=== PATIENT | male | born 1950 | race African-American/Black ===

== ENCOUNTER 2022-08-08 17:18 | Observation (INO) ==
[2022-08-08] MEDS ORDERED: DUONEB NEB ONE (17:38)
[2022-08-08] MEDS ORDERED: TYLENOL PO ONE (17:38)
[2022-08-08] MEDS ORDERED: SODIUM CHLORIDE 1,000 ML IV STA (17:38)
[2022-08-08] MEDS ORDERED: SOLU-MEDROL 125 MG IVP ONE (17:38)
--- NOTE | 2022-08-08 17:38 | ED.PDOC ---
General <CHRIS LEVI MD - Last Filed: 08/08/22 18:36> ED Provider: Dr. CHRIS LEVI MD Chief Complaint: Respiratory Complaint Stated Complaint: mild to mod off and on congested cough for 5 days, hx smoking, no DM, +fever, +malaise, +pleuritic chest discomfort Time Seen by Provider: 08/08/22 17:25 Mode of Arrival: Ambulance Information Source: Patient Nursing and Triage Documentation Reviewed and Agree: Yes Does patient meet sepsis criteria?: No System Inflammatory Response Syndrome: Not Applicable Sepsis Protocol: For patient's 13 years and over: Temp is 96.8 and below OR 101 and greater Pulse >90 BPM Resp >20/minute Acutely Altered Mental Status Are patient's symptoms suggestive of a new infection, such as: -Pneumonia -Skin, Soft Tissue -Endocarditis -UTI -Bone, Joint Infection -Implantable Device -Acute Abdominal Infection -Wound Infection -Meningitis -Blood Stream Catheter Infection -Unknown Review of Systems <CHRIS LEVI MD - Last Filed: 08/08/22 18:36> Review Of Systems Constitutional: Reports Fever, Malaise and Weakness Eyes: Denies Vision change Ears, Nose, Mouth, Throat: Denies Nose discharge or Throat pain Respiratory: Reports Cough, Short of air and Wheezing Cardiac: Reports Chest pain GI: Denies Abdominal pain or Vomiting : Denies Frequency Musculoskeletal: Denies Neck pain Skin: Denies Rash or Cyanosis Neurological: Denies Cognitive dysfunction or Headache All Other Systems: Other PFSH <CHRIS LEVI MD - Last Filed: 08/08/22 18:36> Medical History (Updated 08/09/22 @ 00:45 by BRANDON BLANDON MD) HTN (hypertension) Liver disease Family History (Updated 08/09/22 @ 00:04 by ANTONIO HICKMAN RN) FATHER Gastric cancer Mother Coronary artery thrombosis Social History (Updated 08/08/22 @ 23:24 by ANTONIO HICKMAN RN) Smoking and tobacco status: Current some day smoker Tobacco type: cigarettes Second hand smoke exposure: Yes Surgical History (Updated 08/08/22 @ 23:24 by ANTONIO HICKMAN RN) History of cholecystectomy Hx of tonsillectomy Pacemaker Physical Exam <CHRIS LEVI MD - Last Filed: 08/08/22 18:36> Physical Exam Appearance: Reports Ill-appearing Ill-appearing: Mild Pain Distress: Mild Eyes: Reports Conjunctiva clear ENT: Reports Oropharynx normal Neck: Supple Respiratory: Reports Airway patent, Rhonchi and Wheezes Cardiovascular: Reports RRR GI/: Reports Soft and Nontender Musculoskeletal: Reports ROM intact Skin: Reports Warm and Dry Neurological: Reports Alert and Oriented Psychiatric: Reports Affect appropriate Interpretation <CHRIS LEVI MD - Last Filed: 08/08/22 18:36> EKG Interpretation Time of EKG #1: 18:22 Rate: Normal Rhythm: Sinus Interpretation: no stemi <BRANDON BLANDON MD - Last Filed: 08/09/22 00:45> Critical Care Note Total Critical Care Time (mins): 30 Comments: IV fluids Iv antibiotics Course <CHRIS LEVI MD - Last Filed: 08/08/22 18:36> Course Hematology/Chemistry: 08/08/22 18:16 08/08/22 18:16 Orders, Labs, Meds: Lab Review 08/08/22 08/08/22 08/08/22 17:45 18:16 18:16 WBC 13.48 H RBC 4.11 L Hgb 12.9 L Hct 37.3 L MCV 90.8 MCH 31.4 H MCHC 34.6 RDW Coeff of [place] 13.1 Plt Count 62 L Immature Gran % (Auto) 0.2 Neut % (Auto) 62.1 Lymph % (Auto) 26.0 [place] % (Auto) 11.6 H Eos % (Auto) 0.0 Baso % (Auto) 0.1 Neut # (Auto) 8.4 H Lymph # (Auto) 3.5 H [place] # (Auto) 1.6 Eos # (Auto) 0.0 Baso # (Auto) 0.0 Immature Gran # (Auto) 0.0 Puncture Site Base Excess O2 Saturation ABG pH ABG pCO2 ABG pO2 ABG HCO3 ABG Total CO2 Piotr Test Hemoglobin Oxyhemoglobin Carboxyhemoglobin Total Hemoglobin Sodium 137.5 Potassium 3.25 L Chloride 105.6 Carbon Dioxide 17.4 L Anion Gap 17.75 BUN 31.7 H Creatinine 1.45 H Estimated GFR (MDRD) 58.00 BUN/Creatinine Ratio 21.86 Glucose 75.0 Lactic Acid Calcium 7.26 L Total Bilirubin 0.91 AST 73.9 H ALT 41.0 Alkaline Phosphatase 83.5 Troponin I 0.013 Total Protein 7.79 Albumin 3.73 Globulin 4.06 Albumin/Globulin Ratio 0.91 Procalcitonin Influ A Molecular Assay Influ B Molecular Assay SARS CoV-2 RNA Rapid LAYLA Negative 08/08/22 08/08/22 08/08/22 18:16 18:18 19:35 WBC RBC Hgb Hct MCV MCH MCHC RDW Coeff of [place] Plt Count Immature Gran % (Auto) Neut % (Auto) Lymph % (Auto) [place] % (Auto) Eos % (Auto) Baso % (Auto) Neut # (Auto) Lymph # (Auto) [place] # (Auto) Eos # (Auto) Baso # (Auto) Immature Gran # (Auto) Puncture Site Base Excess O2 Saturation ABG pH ABG pCO2 ABG pO2 ABG HCO3 ABG Total CO2 Piotr Test Hemoglobin Oxyhemoglobin Carboxyhemoglobin Total Hemoglobin Sodium Potassium Chloride Carbon Dioxide Anion Gap BUN Creatinine Estimated GFR (MDRD) BUN/Creatinine Ratio Glucose Lactic Acid 2.59 H Calcium Total Bilirubin AST ALT Alkaline Phosphatase Troponin I Total Protein Albumin Globulin Albumin/Globulin Ratio Procalcitonin 1.30 H Influ A Molecular Assay Negative by naat Influ B Molecular Assay Positive by naat H SARS CoV-2 RNA Rapid LAYLA 08/08/22 21:15 WBC RBC Hgb Hct MCV MCH MCHC RDW Coeff of [place] Plt Count Immature Gran % (Auto) Neut % (Auto) Lymph % (Auto) [place] % (Auto) Eos % (Auto) Baso % (Auto) Neut # (Auto) Lymph # (Auto) [place] # (Auto) Eos # (Auto) Baso # (Auto) Immature Gran # (Auto) Puncture Site Rrad Base Excess -8.1 L O2 Saturation 95.3 ABG pH 7.39 ABG pCO2 28.0 L ABG pO2 78.0 L ABG HCO3 16.9 L ABG Total CO2 17.8 L Piotr Test Pos Hemoglobin 1.4 Oxyhemoglobin 92.8 L Carboxyhemoglobin 1.8 H Total Hemoglobin 12.7 Sodium Potassium Chloride Carbon Dioxide Anion Gap BUN Creatinine Estimated GFR (MDRD) BUN/Creatinine Ratio Glucose Lactic Acid Calcium Total Bilirubin AST ALT Alkaline Phosphatase Troponin I Total Protein Albumin Globulin Albumin/Globulin Ratio Procalcitonin Influ A Molecular Assay Influ B Molecular Assay SARS CoV-2 RNA Rapid LAYLA Orders Category Date Time Status ADMIT OBSERVATION [PLACE PATIENT OBSERVATION] .TO ADMISSION 08/08/22 21:42 Active MEDSURG (MONITORED BED) ABG DRAW REQUEST Stat CARDIO 08/08/22 19:58 Ordered EKG-(ED ONLY) Stat CARDIO 08/08/22 17:38 Completed NEBULIZER TREATMENT Stat CARDIO 08/08/22 19:58 Completed NEBULIZER TREATMENT Stat CARDIO 08/08/22 21:43 Ordered ACTIVITY .Up With Assistance CARE 08/08/22 21:42 Active INTAKE & OUTPUT Q8HR CARE 08/08/22 21:43 Active TELEMETRY MONITORING TELE CARE 08/08/22 21:42 Active VITAL SIGNS Q4HR CARE 08/08/22 21:43 Active REGULAR DIET DIETARY 08/08/22 Breakfast Ordered ABG COOX Stat LAB 08/08/22 21:15 Completed BLOOD CULTURE Stat LAB 08/08/22 18:16 Ordered CBC W/ AUTO DIFF DAILY@0600 LAB 08/09/22 06:00 Ordered CBC W/ AUTO DIFF DAILY@0600 LAB 08/10/22 06:00 Ordered CBC W/ AUTO DIFF Stat LAB 08/08/22 18:16 Completed CMP [COMPREHENSIVE METABOLIC PANEL] Stat LAB 08/08/22 18:16 Completed COMPREHENSIVE METABOLIC PANEL DAILY@0600 LAB 08/09/22 06:00 Ordered COMPREHENSIVE METABOLIC PANEL DAILY@0600 LAB 08/10/22 06:00 Ordered CREATINE KINASE Q8H LAB 08/09/22 03:45 Ordered CREATINE KINASE Q8H LAB 08/09/22 11:45 Ordered FLU A & B MOLECULAR [FLU A/B MOLECULAR] Stat LAB 08/08/22 19:35 Completed LACTIC ACID Stat LAB 08/08/22 18:16 Completed MOLECULAR GROUP A STREP Stat LAB 08/08/22 17:45 Completed PROCALCITONIN Stat LAB 08/08/22 18:18 Completed SARS COV-2 RNA RAPID LAYLA Stat LAB 08/08/22 17:45 Completed TROPONIN I Q8H LAB 08/09/22 03:45 Ordered TROPONIN I Q8H LAB 08/09/22 11:45 Ordered TROPONIN I Stat LAB 08/08/22 18:16 Completed Acetaminophen [Tylenol] MEDS 08/08/22 17:38 Discontinued 650 mg PO ONCE ONE Acetaminophen [Tylenol] MEDS 08/08/22 21:42 Active 650 mg PO Q4H PRN Azithromycin Inj [Zithromax] 500 mg MEDS 08/08/22 19:59 Discontinued 0.9 % Sodium Chloride [Sodium Chloride] 250 ml IV ONCE Azithromycin [Zithromax] MEDS 08/10/22 21:00 Active 250 mg PO BEDTIME Ceftriaxone/D5w 1 gm Premix [Rocephin 1 gm/50 ml D5w] MEDS 08/09/22 21:00 Active 1 gm in 50 ml IV BEDTIME Ceftriaxone/D5w 1 gm Premix [Rocephin 1 gm/50 ml D5w] MEDS 08/08/22 19:59 Discontinued 1 gm in 50 ml IV ONCE Enoxaparin Sodium [Lovenox] MEDS 08/09/22 09:00 Active 30 mg SUBCUT DAILY Ipratropium/Albuterol Neb [Duoneb] MEDS 08/08/22 17:38 Discontinued 3 ml NEB ONCE ONE Ipratropium/Albuterol Neb [Duoneb] MEDS 08/08/22 19:58 Discontinued 3 ml NEB ONCE STA Ipratropium/Albuterol Neb [Duoneb] MEDS 08/08/22 21:42 Discontinued 3 ml NEB ONCE STA Methylprednisolone Sod Succ/Pf [Solu-Medrol 125 mg] MEDS 08/08/22 17:38 Discontinued 125 mg IVP ONCE ONE Morphine Sulfate [Morphine 2 mg/ml Syringe] MEDS 08/08/22 21:42 Active 2 mg IVP Q4H PRN Ondansetron HCl/Pf [Zofran 4 mg/2 ml] MEDS 08/08/22 21:42 Active 4 mg IVP Q6H PRN Oseltamivir Phosphate Cap [Tamiflu Capsule] MEDS 08/08/22 22:00 Discontinued 30 mg PO Q48H Oseltamivir Phosphate Capsule [Tamiflu Capsule] MEDS 08/08/22 21:39 Discontinued 75 mg PO ONCE ONE Sodium Chloride 0.9% [Sodium Chloride] 1,000 ml MEDS 08/08/22 22:00 Active IV 150 mls/hr Sodium Chloride 0.9% [Sodium Chloride] 1,000 ml MEDS 08/08/22 17:38 Discontinued IV BOLUS RESUSCITATION STATUS Routine OTHERS 08/08/22 21:42 Ordered CHEST, 1V AP ONLY Stat RADS 08/08/22 17:38 Completed Medications Generic Name Dose Route Start Last Admin Trade Name Freq PRN Reason Stop Dose Admin Acetaminophen 650 mg 08/08/22 21:42 Acetaminophen 325 Mg Tablet PO Q4H PRN Fever and Mild Pain Azithromycin 250 mg 08/10/22 21:00 Azithromycin 250 Mg Tablet PO 08/13/22 21:01 BEDTIME LAN Enoxaparin Sodium 30 mg 08/09/22 09:00 Enoxaparin Sodium 30 Mg/0.3 Ml Syr SUBCUT DAILY LAN Sodium Chloride 1,000 mls @ 150 mls/hr 08/08/22 22:00 08/08/22 23:57 Sodium Chloride IV 150 mls/hr .Q6H40M LAN Administration CEFTRIAXONE/D5W 1 GM PREMIX 1 gm in 50 mls @ 75 mls/hr 08/09/22 21:00 Rocephin 1 Gm/50 Ml D5w IV 08/12/22 20:59 BEDTIME LAN Morphine Sulfate 2 mg 08/08/22 21:42 Morphine Sulfate 2 Mg/Ml Syringe IVP Q4H PRN severe pain Ondansetron HCl 4 mg 08/08/22 21:42 Ondansetron Hcl/Pf 4 Mg/2 Ml Sdv IVP Q6H PRN Nausea / Vomiting Oseltamivir Phosphate 30 mg 08/09/22 09:00 Oseltamivir Phosphate 30 Mg Capsule PO BID LAN Discontinued Medications Generic Name Dose Route Start Last Admin Trade Name Freq PRN Reason Stop Dose Admin Acetaminophen 650 mg 08/08/22 17:38 08/08/22 17:49 Acetaminophen 325 Mg Tablet PO 08/08/22 17:39 650 mg ONCE ONE Administration Albuterol/Ipratropium 3 ml 08/08/22 17:38 08/08/22 18:00 Ipratropium/Albuterol Vial.[place] [facility] 08/08/22 17:39 3 ml ONCE ONE Administration Albuterol/Ipratropium 3 ml 08/08/22 19:58 08/08/22 21:15 Ipratropium/Albuterol Vial.[facility] 08/08/22 19:59 3 ml ONCE STA Administration Albuterol/Ipratropium 3 ml 08/08/22 21:42 Ipratropium/Albuterol Vial.[facility] 08/08/22 21:43 ONCE STA Sodium Chloride 1,000 mls @ 1,000 mls/hr 08/08/22 17:38 08/08/22 17:48 Sodium Chloride IV 08/08/22 18:37 1,000 mls/hr BOLUS STA Administration CEFTRIAXONE/D5W 1 GM PREMIX 1 gm in 50 mls @ 75 mls/hr 08/08/22 19:59 07/02 20:47 Rocephin 1 Gm/50 Ml D5w IV 08/08/22 20:38 75 mls/hr ONCE STA Administration Azithromycin 500 mg/ Sodium 250 mls @ 125 mls/hr 08/08/22 19:59 08/08/22 23:57 Chloride IV 08/08/22 21:58 125 mls/hr ONCE ONE Administration Methylprednisolone Sodium Succinate 125 mg 08/08/22 17:38 08/08/22 17:49 Methylprednisolone Sod Succ/Pf 125 Mg/2 Ml Vial IVP 08/08/22 17:39 125 mg ONCE ONE Administration Oseltamivir Phosphate 75 mg 08/08/22 21:39 08/08/22 21:51 Oseltamivir Phosphate 75 Mg Capsule PO 08/08/22 21:40 75 mg ONCE ONE Administration Oseltamivir Phosphate 30 mg 08/08/22 22:00 Oseltamivir Phosphate 30 Mg Capsule PO Q48H LAN Vital Signs: Temp Pulse Resp BP Pulse Ox 08/08/22 17:20 101.5 F H 83 20 103/65 99 <BRANDON BLANDON MD - Last Filed: 08/09/22 00:45> Course Orders, Labs, Meds: Lab Review 08/08/22 08/08/22 08/08/22 17:45 18:16 18:16 WBC 13.48 H RBC 4.11 L Hgb 12.9 L Hct 37.3 L MCV 90.8 MCH 31.4 H MCHC 34.6 RDW Coeff of [place] 13.1 Plt Count 62 L Immature Gran % (Auto) 0.2 Neut % (Auto) 62.1 Lymph % (Auto) 26.0 [place] % (Auto) 11.6 H Eos % (Auto) 0.0 Baso % (Auto) 0.1 Neut # (Auto) 8.4 H Lymph # (Auto) 3.5 H [place] # (Auto) 1.6 Eos # (Auto) 0.0 Baso # (Auto) 0.0 Immature Gran # (Auto) 0.0 Puncture Site Base Excess O2 Saturation ABG pH ABG pCO2 ABG pO2 ABG HCO3 ABG Total CO2 Piotr Test Hemoglobin Oxyhemoglobin Carboxyhemoglobin Total Hemoglobin Sodium 137.5 Potassium 3.25 L Chloride 105.6 Carbon Dioxide 17.4 L Anion Gap 17.75 BUN 31.7 H Creatinine 1.45 H Estimated GFR (MDRD) 58.00 BUN/Creatinine Ratio 21.86 Glucose 75.0 Lactic Acid Calcium 7.26 L Total Bilirubin 0.91 AST 73.9 H ALT 41.0 Alkaline Phosphatase 83.5 Troponin I 0.013 Total Protein 7.79 Albumin 3.73 Globulin 4.06 Albumin/Globulin Ratio 0.91 Procalcitonin Influ A Molecular Assay Influ B Molecular Assay SARS CoV-2 RNA Rapid LAYLA Negative 08/08/22 08/08/22 08/08/22 18:16 18:18 19:35 WBC RBC Hgb Hct MCV MCH MCHC RDW Coeff of [place] Plt Count Immature Gran % (Auto) Neut % (Auto) Lymph % (Auto) [place] % (Auto) Eos % (Auto) Baso % (Auto) Neut # (Auto) Lymph # (Auto) [place] # (Auto) Eos # (Auto) Baso # (Auto) Immature Gran # (Auto) Puncture Site Base Excess O2 Saturation ABG pH ABG pCO2 ABG pO2 ABG HCO3 ABG Total CO2 Piotr Test Hemoglobin Oxyhemoglobin Carboxyhemoglobin Total Hemoglobin Sodium Potassium Chloride Carbon Dioxide Anion Gap BUN Creatinine Estimated GFR (MDRD) BUN/Creatinine Ratio Glucose Lactic Acid 2.59 H Calcium Total Bilirubin AST ALT Alkaline Phosphatase Troponin I Total Protein Albumin Globulin Albumin/Globulin Ratio Procalcitonin 1.30 H Influ A Molecular Assay Negative by naat Influ B Molecular Assay Positive by naat H SARS CoV-2 RNA Rapid LAYLA 08/08/22 21:15 WBC RBC Hgb Hct MCV MCH MCHC RDW Coeff of [place] Plt Count Immature Gran % (Auto) Neut % (Auto) Lymph % (Auto) [place] % (Auto) Eos % (Auto) Baso % (Auto) Neut # (Auto) Lymph # (Auto) [place] # (Auto) Eos # (Auto) Baso # (Auto) Immature Gran # (Auto) Puncture Site Rrad Base Excess -8.1 L O2 Saturation 95.3 ABG pH 7.39 ABG pCO2 28.0 L ABG pO2 78.0 L ABG HCO3 16.9 L ABG Total CO2 17.8 L Piotr Test Pos Hemoglobin 1.4 Oxyhemoglobin 92.8 L Carboxyhemoglobin 1.8 H Total Hemoglobin 12.7 Sodium Potassium Chloride Carbon Dioxide Anion Gap BUN Creatinine Estimated GFR (MDRD) BUN/Creatinine Ratio Glucose Lactic Acid Calcium Total Bilirubin AST ALT Alkaline Phosphatase Troponin I Total Protein Albumin Globulin Albumin/Globulin Ratio Procalcitonin Influ A Molecular Assay Influ B Molecular Assay SARS CoV-2 RNA Rapid LAYLA Orders Category Date Time Status ADMIT OBSERVATION [PLACE PATIENT OBSERVATION] .TO ADMISSION 08/08/22 21:42 Active MEDSURG (MONITORED BED) ABG DRAW REQUEST Stat CARDIO 08/08/22 19:58 Ordered EKG-(ED ONLY) Stat CARDIO 08/08/22 17:38 Completed NEBULIZER TREATMENT Stat CARDIO 08/08/22 19:58 Completed NEBULIZER TREATMENT Stat CARDIO 08/08/22 21:43 Ordered ACTIVITY .Up With Assistance CARE 08/08/22 21:42 Active INTAKE & OUTPUT Q8HR CARE 08/08/22 21:43 Active TELEMETRY MONITORING TELE CARE 08/08/22 21:42 Active VITAL SIGNS Q4HR CARE 08/08/22 21:43 Active REGULAR DIET DIETARY 08/08/22 Breakfast Ordered ABG COOX Stat LAB 08/08/22 21:15 Completed BLOOD CULTURE Stat LAB 08/08/22 18:16 Ordered CBC W/ AUTO DIFF DAILY@0600 LAB 08/09/22 06:00 Ordered CBC W/ AUTO DIFF DAILY@0600 LAB 08/10/22 06:00 Ordered CBC W/ AUTO DIFF Stat LAB 08/08/22 18:16 Completed CMP [COMPREHENSIVE METABOLIC PANEL] Stat LAB 08/08/22 18:16 Completed COMPREHENSIVE METABOLIC PANEL DAILY@0600 LAB 08/09/22 06:00 Ordered COMPREHENSIVE METABOLIC PANEL DAILY@0600 LAB 08/10/22 06:00 Ordered CREATINE KINASE Q8H LAB 08/09/22 03:45 Ordered CREATINE KINASE Q8H LAB 08/09/22 11:45 Ordered FLU A & B MOLECULAR [FLU A/B MOLECULAR] Stat LAB 08/08/22 19:35 Completed LACTIC ACID Stat LAB 08/08/22 18:16 Completed MOLECULAR GROUP A STREP Stat LAB 08/08/22 17:45 Completed PROCALCITONIN Stat LAB 08/08/22 18:18 Completed SARS COV-2 RNA RAPID LAYLA Stat LAB 08/08/22 17:45 Completed TROPONIN I Q8H LAB 08/09/22 03:45 Ordered TROPONIN I Q8H LAB 08/09/22 11:45 Ordered TROPONIN I Stat LAB 08/08/22 18:16 Completed Acetaminophen [Tylenol] MEDS 08/08/22 17:38 Discontinued 650 mg PO ONCE ONE Acetaminophen [Tylenol] MEDS 08/08/22 21:42 Active 650 mg PO Q4H PRN Azithromycin Inj [Zithromax] 500 mg MEDS 08/08/22 19:59 Discontinued 0.9 % Sodium Chloride [Sodium Chloride] 250 ml IV ONCE Azithromycin [Zithromax] MEDS 08/10/22 21:00 Active 250 mg PO BEDTIME Ceftriaxone/D5w 1 gm Premix [Rocephin 1 gm/50 ml D5w] MEDS 08/09/22 21:00 Active 1 gm in 50 ml IV BEDTIME Ceftriaxone/D5w 1 gm Premix [Rocephin 1 gm/50 ml D5w] MEDS 08/08/22 19:59 Discontinued 1 gm in 50 ml IV ONCE Enoxaparin Sodium [Lovenox] MEDS 08/09/22 09:00 Active 30 mg SUBCUT DAILY Ipratropium/Albuterol Neb [Duoneb] MEDS 08/08/22 17:38 Discontinued 3 ml NEB ONCE ONE Ipratropium/Albuterol Neb [Duoneb] MEDS 08/08/22 19:58 Discontinued 3 ml NEB ONCE STA Ipratropium/Albuterol Neb [Duoneb] MEDS 08/08/22 21:42 Discontinued 3 ml NEB ONCE STA Methylprednisolone Sod Succ/Pf [Solu-Medrol 125 mg] MEDS 08/08/22 17:38 Discontinued 125 mg IVP ONCE ONE Morphine Sulfate [Morphine 2 mg/ml Syringe] MEDS 08/08/22 21:42 Active 2 mg IVP Q4H PRN Ondansetron HCl/Pf [Zofran 4 mg/2 ml] MEDS 08/08/22 21:42 Active 4 mg IVP Q6H PRN Oseltamivir Phosphate Cap [Tamiflu Capsule] MEDS 08/08/22 22:00 Discontinued 30 mg PO Q48H Oseltamivir Phosphate Capsule [Tamiflu Capsule] MEDS 08/08/22 21:39 Discontinued 75 mg PO ONCE ONE Sodium Chloride 0.9% [Sodium Chloride] 1,000 ml MEDS 08/08/22 22:00 Active IV 150 mls/hr Sodium Chloride 0.9% [Sodium Chloride] 1,000 ml MEDS 08/08/22 17:38 Discontinued IV BOLUS RESUSCITATION STATUS Routine OTHERS 08/08/22 21:42 Ordered CHEST, 1V AP ONLY Stat RADS 08/08/22 17:38 Completed Medications Generic Name Dose Route Start Last Admin Trade Name [place]iliam PRN Reason Stop Dose Admin Acetaminophen 650 mg 08/08/22 21:42 Acetaminophen 325 Mg Tablet PO Q4H PRN Fever and Mild Pain Azithromycin 250 mg 08/10/22 21:00 Azithromycin 250 Mg Tablet PO 08/13/22 21:01 BEDTIME LAN Enoxaparin Sodium 30 mg 08/09/22 09:00 Enoxaparin Sodium 30 Mg/0.3 Ml Syr SUBCUT DAILY LAN Sodium Chloride 1,000 mls @ 150 mls/hr 08/08/22 22:00 08/08/22 23:57 Sodium Chloride IV 150 mls/hr .Q6H40M LAN Administration CEFTRIAXONE/D5W 1 GM PREMIX 1 gm in 50 mls @ 75 mls/hr 08/09/22 21:00 Rocephin 1 Gm/50 Ml D5w IV 08/12/22 20:59 BEDTIME LAN Morphine Sulfate 2 mg 08/08/22 21:42 Morphine Sulfate 2 Mg/Ml Syringe IVP Q4H PRN severe pain Ondansetron HCl 4 mg 08/08/22 21:42 Ondansetron Hcl/Pf 4 Mg/2 Ml Sdv IVP Q6H PRN Nausea / Vomiting Oseltamivir Phosphate 30 mg 08/09/22 09:00 Oseltamivir Phosphate 30 Mg Capsule PO BID LAN Discontinued Medications Generic Name Dose Route Start Last Admin Trade Name Wiliam PRN Reason Stop Dose Admin Acetaminophen 650 mg 08/08/22 17:38 08/08/22 17:49 Acetaminophen 325 Mg Tablet PO 08/08/22 17:39 650 mg ONCE ONE Administration Albuterol/Ipratropium 3 ml 08/08/22 17:38 08/08/22 18:00 Ipratropium/Albuterol Vial.[place] VENCES 08/08/22 17:39 3 ml ONCE ONE Administration Albuterol/Ipratropium 3 ml 08/08/22 19:58 08/08/22 21:15 Ipratropium/Albuterol Vial.[place] VENCES 08/08/22 19:59 3 ml ONCE STA Administration Albuterol/Ipratropium 3 ml 08/08/22 21:42 Ipratropium/Albuterol Vial.Neb NEB 08/08/22 21:43 ONCE STA Sodium Chloride 1,000 mls @ 1,000 mls/hr 08/08/22 17:38 08/08/22 17:48 Sodium Chloride IV 08/08/22 18:37 1,000 mls/hr BOLUS STA Administration CEFTRIAXONE/D5W 1 GM PREMIX 1 gm in 50 mls @ 75 mls/hr 08/08/22 19:59 08/08/22 20:47 Rocephin 1 Gm/50 Ml D5w IV 08/08/22 20:38 75 mls/hr ONCE STA Administration Azithromycin 500 mg/ Sodium 250 mls @ 125 mls/hr 08/08/22 19:59 08/08/22 2 3:57 Chloride IV 08/08/22 21:58 125 mls/hr ONCE ONE Administration Methylprednisolone Sodium Succinate 125 mg 08/08/22 17:38 08/08/22 17:49 Methylprednisolone Sod Succ/Pf 125 Mg/2 Ml Vial IVP 08/08/22 17:39 125 mg ONCE ONE Administration Oseltamivir Phosphate 75 mg 08/08/22 21:39 08/08/22 21:51 Oseltamivir Phosphate 75 Mg Capsule PO 08/08/22 21:40 75 mg ONCE ONE Administration Oseltamivir Phosphate 30 mg 08/08/22 22:00 Oseltamivir Phosphate 30 Mg Capsule PO Q48H LAN Vital Signs: Temp Pulse Resp BP Pulse Ox 08/08/22 17:20 101.5 F H 83 20 103/65 99 Discharge Plan Discharge Patient Disposition: PLACED OBSERVATION Discharge Problem: Influenza B, Sepsis, Chest pain ED Provider: CHRIS LEVI Condition: Fair <CHRIS LEVI MD - Last Filed: 08/08/22 18:36> Physician Progress Note: care to midnight doctor at 19:00 []
--- NOTE | 2022-08-08 18:22 | DI ---
EXAMINATION: AP CHEST RADIOGRAPH. HISTORY: Fever COMPARISON: None available. FINDINGS: No focal consolidation, pleural effusion or pneumothorax is identified. Left basilar calcified granu laurie noted. The cardiomediastinal silhouette is within normal limits. A right chest wall pacing device is noted. IMPRESSION: No acute cardiopulmonary findings.
[2022-08-08 18:23] LABS: BASOPHILS % (AUTO) 0.1 % (0.0-3.0); HEMATOCRIT 37.3 % (42.0-52.0); HEMOGLOBIN 12.9 g/dl (14.0-18.0); IMMATURE GRANULOCYTE % (AUTO) 0.2 % (0.0-5.0); LYMPHOCYTES # (AUTO) 3.5 K/uL (0.60-3.4); MEAN CORPUSCULAR HEMOGLOBIN 31.4 pg (27.0-31.0); MEAN CORPUSCULAR HGB CONC 34.6 (31.8-35.4); MEAN CORPUSCULAR VOLUME 90.8 fl (80.0-94.0); MONOCYTES # (AUTO) 1.6 K/uL (0.4-2.0); MONOCYTES % (AUTO) 11.6 (0-10); NEUTROPHILS # (AUTO) 8.4 K/ul (2.0-6.9); NEUTROPHILS % (AUTO) 62.1 % (42.2-75.2); PLATELET COUNT 62 10^3/uL (140-440); RDW COEFFICIENT OF VARIATION 13.1 % (11.6-14.8); RED BLOOD COUNT 4.11 10^6/ul (4.70-6.10); WHITE BLOOD COUNT 13.48 K/ul (4.2-10.2)
[2022-08-08 18:35] LABS: ALBUMIN 3.73 g/dL (3.5-5.0); ALKALINE PHOSPHATASE 83.5 U/L (56-119); ASPARTATE AMINO TRANSFERASE 73.9 U/L (17-59); BILIRUBIN,TOTAL 0.91 mg/dL (0.2-1.3); BLOOD UREA NITROGEN 31.7 mg/dL (9-20); CALCIUM 7.26 mg/dL (8.4-10.2); CARBON DIOXIDE 17.4 mmol/L (22-30.0); CHLORIDE 105.6 mmol/L (98-107); CREATININE 1.45 mg/dL (0.60-1.10); POTASSIUM 3.25 mmol/L (3.5-5.1); SODIUM 137.5 mmol/L (134.5-145); TOTAL PROTEIN 7.79 g/dL (6.3-8.2)
[2022-08-08 18:47] LABS: TROPONIN I 0.013 ng/ml (0.0000-0.120)
[2022-08-08 19:01] LABS: SARS COV-2 RNA RAPID NAAT NEGATIVE (NEGATIVE)
[2022-08-08 19:55] LABS: MOLECULAR FLU A NEGATIVE BY NAAT (NEGATIVE); MOLECULAR FLU B POSITIVE BY NAAT (NEGATIVE)
[2022-08-08] MEDS ORDERED: DUONEB NEB STA ×2 (19:58→21:42)
[2022-08-08] MEDS ORDERED: ROCEPHIN 1 GM/50 ML D5W 1 GM/50 ML BAG IV STA (19:59)
[2022-08-08] MEDS ORDERED: ZITHROMAX 500 MG in SODIUM CHLORIDE 250 ML IV ONE (19:59)
[2022-08-08] MEDS ORDERED: TAMIFLU CAPSULE PO ONE (21:39)
[2022-08-08] MEDS ORDERED: MORPHINE 2 MG/ML SYRINGE IVP PRN (21:42)
[2022-08-08 21:52] LABS: ABG O2 HGB 92.8 % (95-100); ABG PH 7.39 (7.35-7.45); BEecf -8.1 (-2.0-3.0); COHb 1.8 (0.5-1.5); HCO3 16.9 (21-28); MetHb 1.4 (0-1.5); TCO2 17.8 (19-24); sO2 95.3 % (94-98); tHb 12.7 g/dl (11.7-17.4)
[2022-08-08] MEDS ORDERED: TAMIFLU CAPSULE PO SCH (22:00)
[2022-08-08 23:33] VITALS: BMI 15.2
[2022-08-08] MEDS: SODIUM CHLORIDE 1,000 ML IV SCH (23:57)
[2022-08-09 03:52] LABS: BASOPHILS % (AUTO) 0.2 % (0.0-3.0); HEMATOCRIT 37.7 % (42.0-52.0); HEMOGLOBIN 12.9 g/dl (14.0-18.0); IMMATURE GRANULOCYTE % (AUTO) 0.3 % (0.0-5.0); LYMPHOCYTES # (AUTO) 0.7 K/uL (0.60-3.4); LYMPHOCYTES % (AUTO) 7.1 (10.0-50.0); MEAN CORPUSCULAR HEMOGLOBIN 31.5 pg (27.0-31.0); MEAN CORPUSCULAR HGB CONC 34.2 (31.8-35.4); MONOCYTES # (AUTO) 0.1 K/uL (0.4-2.0); MONOCYTES % (AUTO) 1.3 (0-10); NEUTROPHILS # (AUTO) 8.7 K/ul (2.0-6.9); NEUTROPHILS % (AUTO) 91.1 % (42.2-75.2); PLATELET COUNT 67 10^3/uL (140-440); RDW COEFFICIENT OF VARIATION 13.3 % (11.6-14.8); WHITE BLOOD COUNT 9.54 K/ul (4.2-10.2)
[2022-08-09 04:02] LABS: ALBUMIN 3.77 g/dL (3.5-5.0); ALKALINE PHOSPHATASE 76.2 U/L (56-119); BILIRUBIN,TOTAL 0.54 mg/dL (0.2-1.3); BLOOD UREA NITROGEN 33.7 mg/dL (9-20); CALCIUM 7.35 mg/dL (8.4-10.2); CARBON DIOXIDE 23.6 mmol/L (22-30.0); CHLORIDE 106.8 mmol/L (98-107); CREATINE KINASE 176.1 U/L (55-170); CREATININE 1.31 mg/dL (0.60-1.10); GLUCOSE 181.8 mg/dL (74-106); SODIUM 142.1 mmol/L (134.5-145); TOTAL PROTEIN 8.02 g/dL (6.3-8.2)
[2022-08-09 04:09] LABS: ALANINE AMINOTRANSFERASE 47.6 U/L (0-50)
[2022-08-09 04:13] LABS: TROPONIN I < 0.012 ng/ml (0.0000-0.120)
[2022-08-09] MEDS: TYLENOL PO PRN (08:57)
[2022-08-09] MEDS: K-DUR PO SCH (08:58)
[2022-08-09] MEDS: TAMIFLU CAPSULE PO SCH ×2 (08:58→20:26)
[2022-08-09] MEDS: LOVENOX SUBCUT SCH (09:04)
[2022-08-09] MEDS: SODIUM CHLORIDE 1,000 ML IV SCH ×3 (09:04→22:12)
--- NOTE | 2022-08-09 09:12 | PCM.PROG ---
Date Seen by Provider: 08/09/22 Time Seen by Provider: 08:30 Subjective: Patient feeling better. Complains of pleuritic chest pain with cough. Objective: Vitals: T=98.6 F, P=83, R=18, BA=251/67, SPO2=99 Alert and in NAD. Breathing without distress. HEENT: [] Neck: [] Lungs: [] Chest clear. BS equal. CVS: [] RRR Abdomen: []Soft, nontender. Extremities: [] Neurological: [] Skin: [] Lab/Tests/Diagnostic Imaging: [] (1) Influenza B: Status: Acute Code(s): J10.1 - Influenza due to other identified influenza virus with other respiratory manifestations SNOMED Code(s): 28412258 (2) Sepsis: Status: Acute Code(s): A41.9 - Sepsis, unspecified organism SNOMED Code(s): 76651865 (3) Chest pain: Status: Acute Code(s): R07.9 - Chest pain, unspecified SNOMED Code(s): 85113385 Plan: Continue antibiotics and observation. Tylenol for chest pain;patient has cirrhosis.
[2022-08-09] MEDS: ZOFRAN 4 MG/2 ML IVP PRN (12:01)
[2022-08-09 13:27] LABS: CREATINE KINASE 168.6 U/L (55-170)
[2022-08-09 13:41] LABS: TROPONIN I < 0.012 ng/ml (0.0000-0.120)
[2022-08-09] MEDS: NORVASC PO SCH (15:41)
[2022-08-09] MEDS: PRILOSEC PO SCH (15:41)
[2022-08-09] MEDS: ROCEPHIN 1 GM/50 ML D5W 1 GM/50 ML BAG IV SCH (20:27)
[2022-08-10] MEDS: SODIUM CHLORIDE 1,000 ML IV SCH ×2 (04:25→10:26)
[2022-08-10 05:00] LABS: BASOPHILS % (AUTO) 0.2 % (0.0-3.0); HEMATOCRIT 31.8 % (42.0-52.0); IMMATURE GRANULOCYTE # (AUTO) 0.1 (0.0-1.0); IMMATURE GRANULOCYTE % (AUTO) 0.5 % (0.0-5.0); LYMPHOCYTES # (AUTO) 2.1 K/uL (0.60-3.4); LYMPHOCYTES % (AUTO) 16.6 (10.0-50.0); MEAN CORPUSCULAR HEMOGLOBIN 31.6 pg (27.0-31.0); MEAN CORPUSCULAR HGB CONC 34.6 (31.8-35.4); MEAN CORPUSCULAR VOLUME 91.4 fl (80.0-94.0); MONOCYTES # (AUTO) 0.6 K/uL (0.4-2.0); MONOCYTES % (AUTO) 4.5 (0-10); NEUTROPHILS # (AUTO) 9.8 K/ul (2.0-6.9); NEUTROPHILS % (AUTO) 78.2 % (42.2-75.2); PLATELET COUNT 55 10^3/uL (140-440); RDW COEFFICIENT OF VARIATION 13.2 % (11.6-14.8); RED BLOOD COUNT 3.48 10^6/ul (4.70-6.10); WHITE BLOOD COUNT 12.57 K/ul (4.2-10.2)
[2022-08-10 05:11] LABS: ALANINE AMINOTRANSFERASE 32.6 U/L (0-50); ALBUMIN 2.87 g/dL (3.5-5.0); ALKALINE PHOSPHATASE 69.6 U/L (56-119); ASPARTATE AMINO TRANSFERASE 67.3 U/L (17-59); BILIRUBIN,TOTAL 0.42 mg/dL (0.2-1.3); BLOOD UREA NITROGEN 19.2 mg/dL (9-20); CALCIUM 6.91 mg/dL (8.4-10.2); CARBON DIOXIDE 17.2 mmol/L (22-30.0); CHLORIDE 113.1 mmol/L (98-107); CREATININE 0.89 mg/dL (0.60-1.10); GLUCOSE 117.7 mg/dL (74-106); POTASSIUM 3.39 mmol/L (3.5-5.1); SODIUM 138.4 mmol/L (134.5-145); TOTAL PROTEIN 6.49 g/dL (6.3-8.2)
[2022-08-10] MEDS: PRILOSEC PO SCH (06:06)
[2022-08-10] MEDS: TAMIFLU CAPSULE PO SCH ×2 (08:44→20:47)
[2022-08-10] MEDS: K-DUR PO SCH (08:44)
[2022-08-10] MEDS: ZOFRAN 4 MG/2 ML IVP PRN (08:44)
[2022-08-10] MEDS: NORVASC PO SCH (08:44)
[2022-08-10] MEDS: LOVENOX SUBCUT SCH (08:46)
--- NOTE | 2022-08-10 12:08 | PCM.PROG ---
Date Seen by Provider: 08/10/22 Time Seen by Provider: 10:15 Subjective: Patient states that he is feeling better. Was eating lunch during this visit. Denies any pain Objective: Vitals: T=97.4 F, P=68, R=18, RK=171/83, SPO2=96 HEENT: [mucus membranes moist ] Neck: [] Lungs: [Clinically clear ] CVS: [Regular s1 and S2 ] Abdomen: [benign ] Extremities: [no edema ] Neurological: [Awake and alert ] Skin: [warm and Dry ] Lab/Tests/Diagnostic Imaging: [ Laboratory Results - last 24 hr 08/10/22 08/10/22 04:44 04:44 WBC 12.57 H RBC 3.48 L Hgb 11.0 L Hct 31.8 L MCV 91.4 MCH 31.6 H MCHC 34.6 RDW Coeff of [place] 13.2 Plt Count 55 L Immature Gran % (Auto) 0.5 Neut % (Auto) 78.2 H Lymph % (Auto) 16.6 [place] % (Auto) 4.5 Eos % (Auto) 0.0 Baso % (Auto) 0.2 Neut # (Auto) 9.8 H Lymph # (Auto) 2.1 [place] # (Auto) 0.6 Eos # (Auto) 0.0 Baso # (Auto) 0.0 Immature Gran # (Auto) 0.1 Sodium 138.4 Potassium 3.39 L Chloride 113.1 H Carbon Dioxide 17.2 L Anion Gap 11.49 BUN 19.2 Creatinine 0.89 Estimated GFR (MDRD) 102.00 BUN/Creatinine Ratio 21.57 Glucose 117.7 H Calcium 6.91 L Total Bilirubin 0.42 AST 67.3 H ALT 32.6 Alkaline Phosphatase 69.6 Total Protein 6.49 Albumin 2.87 L Globulin 3.62 Albumin/Globulin Ratio 0.79 ] (1) Influenza B: Status: Acute Code(s): J10.1 - Influenza due to other identified influenza virus with other respiratory manifestations SNOMED Code(s): 84291731 Assessment: symtoms improved (2) Sepsis: Status: Acute Code(s): A41.9 - Sepsis, unspecified organism SNOMED Code(s): 06669549 (3) Chest pain: Status: Acute Code(s): R07.9 - Chest pain, unspecified SNOMED Code(s): 55903795 Plan: Discharge home
[2022-08-10 14:45] VITALS: BP 160/89; TEMP 97.2
--- NOTE | 2022-08-10 17:32 | PCM.DC ---
Final Diagnosis: Influenza B Chest pain Dehydration Sepsis Physical Exam Appearance: Well-appearing Ill-appearing: Not Applicable Pain Distress: Not Applicable Eyes: Conjunctiva clear ENT: Nose normal and Oropharynx normal Respiratory: Airway patent, Breath sounds clear and Respirations nonlabored Cardiovascular: RRR, Pulses normal and No rub GI/: Soft and Nontender Musculoskeletal: Normal strength and ROM intact Skin: Warm and Dry Neurological: Motor intact, Alert and Oriented Psychiatric: Anxious (1) Influenza B: Status: Acute Code(s): J10.1 - Influenza due to other identified influenza virus with other respiratory manifestations SNOMED Code(s): 82643753 (2) Sepsis: Status: Acute Code(s): A41.9 - Sepsis, unspecified organism SNOMED Code(s): 50064570 (3) Chest pain: Status: Acute Code(s): R07.9 - Chest pain, unspecified SNOMED Code(s): 23020653 Reason for Hospitalization: Sepsis appearing with tachycardia and elevated Lactic acid in the setting of FLU * Patient needed IV fluids and Antibiotics. Prognosis/Condition at Discharge: Good Medications at Discharge: See Medication recon Lab/Diagnostics: Comprehensive Lab Summary 08/08/22 08/08/22 08/08/22 Range/Units 17:45 18:16 18:16 WBC 13.48 H (4.2-10.2) K/ul RBC 4.11 L (4.70-6.10) 10^6/ul Hgb 12.9 L (14.0-18.0) g/dl Hct 37.3 L (42.0-52.0) % MCV 90.8 (80.0-94.0) fl MCH 31.4 H (27.0-31.0) pg MCHC 34.6 (31.8-35.4) RDW Coeff of [place] 13.1 (11.6-14.8) % Plt Count 62 L (140-440) 10^3/uL Immature Gran % (Auto) 0.2 (0.0-5.0) % Neut % (Auto) 62.1 (42.2-75.2) % Lymph % (Auto) 26.0 (10.0-50.0) Jewell % (Auto) 11.6 H (0-10) Eos % (Auto) 0.0 (0.0-7.0) % Baso % (Auto) 0.1 (0.0-3.0) % Neut # (Auto) 8.4 H (2.0-6.9) K/ul Lymph # (Auto) 3.5 H (0.60-3.4) K/uL Jewell # (Auto) 1.6 (0.4-2.0) K/uL Eos # (Auto) 0.0 (0.0-0.7) K/ul Baso # (Auto) 0.0 (0-0.2) K/uL Immature Gran # (Auto) 0.0 (0.0-1.0) Puncture Site Base Excess (-2.0-3.0) O2 Saturation (94-98) % ABG pH (7.35-7.45) ABG pCO2 (35-45) mmHg ABG pO2 (85-100) mmHg ABG HCO3 (21-28) ABG Total CO2 (19-24) Piotr Test Hemoglobin (0-1.5) Oxyhemoglobin (95-100) % Carboxyhemoglobin (0.5-1.5) Total Hemoglobin (11.7-17.4) g/dl Sodium 137.5 (134.5-145) mmol/L Potassium 3.25 L (3.5-5.1) mmol/L Chloride 105.6 (98-107) mmol/L Carbon Dioxide 17.4 L (22-30.0) mmol/L Anion Gap 17.75 BUN 31.7 H (9-20) mg/dL Creatinine 1.45 H (0.60-1.10) mg/dL Estimated GFR (MDRD) 58.00 mL/min BUN/Creatinine Ratio 21.86 Glucose 75.0 (74-106) mg/dL Lactic Acid (0.7-2.1) mmol/L Calcium 7.26 L (8.4-10.2) mg/dL Total Bilirubin 0.91 (0.2-1.3) mg/dL AST 73.9 H (17-59) U/L ALT 41.0 (0-50) U/L Alkaline Phosphatase 83.5 (56-119) U/L Total Creatine Kinase (55-170) U/L CK-MB (CK-2) (0.0-2.38) ng/ml CK-MB (CK-2) % Troponin I 0.013 (0.0000-0.120) ng/ml Total Protein 7.79 (6.3-8.2) g/dL Albumin 3.73 (3.5-5.0) g/dL Globulin 4.06 Albumin/Globulin Ratio 0.91 Procalcitonin (<0.05) ng/mL Influ A Molecular Assay (NEGATIVE) Influ B Molecular Assay (NEGATIVE) SARS CoV-2 RNA Rapid LAYLA Negative (NEGATIVE) 08/08/22 08/08/22 08/08/22 Range/Units 18:16 18:18 19:35 WBC (4.2-10.2) K/ul RBC (4.70-6.10) 10^6/ul Hgb (14.0-18.0) g/dl Hct (42.0-52.0) % MCV (80.0-94.0) fl MCH (27.0-31.0) pg MCHC (31.8-35.4) RDW Coeff of [place] (11.6-14.8) % Plt Count (140-440) 10^3/uL Immature Gran % (Auto) (0.0-5.0) % Neut % (Auto) (42.2-75.2) % Lymph % (Auto) (10.0-50.0) Jewell % (Auto) (0-10) Eos % (Auto) (0.0-7.0) % Baso % (Auto) (0.0-3.0) % Neut # (Auto) (2.0-6.9) K/ul Lymph # (Auto) (0.60-3.4) K/uL Jewell # (Auto) (0.4-2.0) K/uL Eos # (Auto) (0.0-0.7) K/ul Baso # (Auto) (0-0.2) K/uL Immature Gran # (Auto) (0.0-1.0) Puncture Site Base Excess (-2.0-3.0) O2 Saturation (94-98) % ABG pH (7.35-7.45) ABG pCO2 (35-45) mmHg ABG pO2 (85-100) mmHg ABG HCO3 (21-28) ABG Total CO2 (19-24) Piotr Test Hemoglobin (0-1.5) Oxyhemoglobin (95-100) % Carboxyhemoglobin (0.5-1.5) Total Hemoglobin (11.7-17.4) g/dl Sodium (134.5-145) mmol/L Potassium (3.5-5.1) mmol/L Chloride (98-107) mmol/L Carbon Dioxide (22-30.0) mmol/L Anion Gap BUN (9-20) mg/dL Creatinine (0.60-1.10) mg/dL Estimated GFR (MDRD) mL/min BUN/Creatinine Ratio Glucose (74-106) mg/dL Lactic Acid 2.59 H (0.7-2.1) mmol/L Calcium (8.4-10.2) mg/dL Total Bilirubin (0.2-1.3) mg/dL AST (17-59) U/L ALT (0-50) U/L Alkaline Phosphatase (56-119) U/L Total Creatine Kinase (55-170) U/L CK-MB (CK-2) (0.0-2.38) ng/ml CK-MB (CK-2) % Troponin I (0.0000-0.120) ng/ml Total Protein (6.3-8.2) g/dL Albumin (3.5-5.0) g/dL Globulin Albumin/Globulin Ratio Procalcitonin 1.30 H (<0.05) ng/mL Influ A Molecular Assay Negative by naat (NEGATIVE) Influ B Molecular Assay Positive by naat H (NEGATIVE) SARS CoV-2 RNA Rapid LAYLA (NEGATIVE) 08/08/22 08/09/22 08/09/22 Range/Units 21:15 03:42 03:42 WBC 9.54 (4.2-10.2) K/ul RBC 4.10 L (4.70-6.10) 10^6/ul Hgb 12.9 L (14.0-18.0) g/dl Hct 37.7 L (42.0-52.0) % MCV 92.0 (80.0-94.0) fl MCH 31.5 H (27.0-31.0) pg MCHC 34.2 (31.8-35.4) RDW Coeff of [place] 13.3 (11.6-14.8) % Plt Count 67 L (140-440) 10^3/uL Immature Gran % (Auto) 0.3 (0.0-5.0) % Neut % (Auto) 91.1 H (42.2-75.2) % Lymph % (Auto) 7.1 L (10.0-50.0) Jewell % (Auto) 1.3 (0-10) Eos % (Auto) 0.0 (0.0-7.0) % Baso % (Auto) 0.2 (0.0-3.0) % Neut # (Auto) 8.7 H (2.0-6.9) K/ul Lymph # (Auto) 0.7 (0.60-3.4) K/uL Jewell # (Auto) 0.1 L (0.4-2.0) K/uL Eos # (Auto) 0.0 (0.0-0.7) K/ul Baso # (Auto) 0.0 (0-0.2) K/uL Immature Gran # (Auto) 0.0 (0.0-1.0) Puncture Site [employer] Base Excess -8.1 L (-2.0-3.0) O2 Saturation 95.3 (94-98) % ABG pH 7.39 (7.35-7.45) ABG pCO2 28.0 L (35-45) mmHg ABG pO2 78.0 L (85-100) mmHg ABG HCO3 16.9 L (21-28) ABG Total CO2 17.8 L (19-24) Piotr Test Pos Hemoglobin 1.4 (0-1.5) Oxyhemoglobin 92.8 L (95-100) % Carboxyhemoglobin 1.8 H (0.5-1.5) Total Hemoglobin 12.7 (11.7-17.4) g/dl Sodium 142.1 (134.5-145) mmol/L Potassium 3.70 (3.5-5.1) mmol/L Chloride 106.8 (98-107) mmol/L Carbon Dioxide 23.6 (22-30.0) mmol/L Anion Gap 15.40 BUN 33.7 H (9-20) mg/dL Creatinine 1.31 H (0.60-1.10) mg/dL Estimated GFR (MDRD) 66.00 mL/min BUN/Creatinine Ratio 25.72 Glucose 181.8 H D (74-106) mg/dL Lactic Acid (0.7-2.1) mmol/L Calcium 7.35 L (8.4-10.2) mg/dL Total Bilirubin 0.54 (0.2-1.3) mg/dL AST 85.0 H (17-59) U/L ALT 47.6 (0-50) U/L Alkaline Phosphatase 76.2 (56-119) U/L Total Creatine Kinase 176.1 H (55-170) U/L CK-MB (CK-2) 2.760 H (0.0-2.38) ng/ml CK-MB (CK-2) % 1.5600 Troponin I < 0.012 (0.0000-0.120) ng/ml Total Protein 8.02 (6.3-8.2) g/dL Albumin 3.77 (3.5-5.0) g/dL Globulin 4.25 Albumin/Globulin Ratio 0.88 Procalcitonin (<0.05) ng/mL Influ A Molecular Assay (NEGATIVE) Influ B Molecular Assay (NEGATIVE) SARS CoV-2 RNA Rapid LAYLA (NEGATIVE) 08/09/22 08/10/22 08/10/22 Range/Units 13:12 04:44 04:44 WBC 12.57 H (4.2-10.2) K/ul RBC 3.48 L (4.70-6.10) 10^6/ul Hgb 11.0 L (14.0-18.0) g/dl Hct 31.8 L (42.0-52.0) % MCV 91.4 (80.0-94.0) fl MCH 31.6 H (27.0-31.0) pg MCHC 34.6 (31.8-35.4) RDW Coeff of [place] 13.2 (11.6-14.8) % Plt Count 55 L (140-440) 10^3/uL Immature Gran % (Auto) 0.5 (0.0-5.0) % Neut % (Auto) 78.2 H (42.2-75.2) % Lymph % (Auto) 16.6 (10.0-50.0) Jewell % (Auto) 4.5 (0-10) Eos % (Auto) 0.0 (0.0-7.0) % Baso % (Auto) 0.2 (0.0-3.0) % Neut # (Auto) 9.8 H (2.0-6.9) K/ul Lymph # (Auto) 2.1 (0.60-3.4) K/uL [place]ell # (Auto) 0.6 (0.4-2.0) K/uL Eos # (Auto) 0.0 (0.0-0.7) K/ul Baso # (Auto) 0.0 (0-0.2) K/uL Immature Gran # (Auto) 0.1 (0.0-1.0) Puncture Site Base Excess (-2.0-3.0) O2 Saturation (94-98) % ABG pH (7.35-7.45) ABG pCO2 (35-45) mmHg ABG pO2 (85-100) mmHg ABG HCO3 (21-28) ABG Total CO2 (19-24) Piotr Test Hemoglobin (0-1.5) Oxyhemoglobin (95-100) % Carboxyhemoglobin (0.5-1.5) Total Hemoglobin (11.7-17.4) g/dl Sodium 138.4 (134.5-145) mmol/L Potassium 3.39 L (3.5-5.1) mmol/L Chloride 113.1 H (98-107) mmol/L Carbon Dioxide 17.2 L (22-30.0) mmol/L Anion Gap 11.49 BUN 19.2 (9-20) mg/dL Creatinine 0.89 (0.60-1.10) mg/dL Estimated GFR (MDRD) 102.00 mL/min BUN/Creatinine Ratio 21.57 Glucose 117.7 H (74-106) mg/dL Lactic Acid (0.7-2.1) mmol/L Calcium 6.91 L (8.4-10.2) mg/dL Total Bilirubin 0.42 (0.2-1.3) mg/dL AST 67.3 H (17-59) U/L ALT 32.6 (0-50) U/L Alkaline Phosphatase 69.6 (56-119) U/L Total Creatine Kinase 168.6 (55-170) U/L CK-MB (CK-2) 3.080 H (0.0-2.38) ng/ml CK-MB (CK-2) % 1.8200 Troponin I < 0.012 (0.0000-0.120) ng/ml Total Protein 6.49 (6.3-8.2) g/dL Albumin 2.87 L (3.5-5.0) g/dL Globulin 3.62 Albumin/Globulin Ratio 0.79 Procalcitonin (<0.05) ng/mL Influ A Molecular Assay (NEGATIVE) Influ B Molecular Assay (NEGATIVE) SARS CoV-2 RNA Rapid LAYLA (NEGATIVE) 08/08/22 18:16 Blood Blood Culture - Preliminary NEGATIVE AFTER 1 DAY. 08/08/22 17:45 Throat Group A Strep Molecular Assay - Final Follow-ups: withPCp in 1 week Discharge Disposition: with Friends since he is homeless Hospital Course: Symptoms of lethargy, weakness due to Flu B improved with IV fluids empiric Antibiotics for pneumonia and Tamiflu. Plan: Discharger with friends
[2022-08-10] MEDS: TYLENOL PO PRN (20:46)
[2022-08-10] MEDS: ROCEPHIN 1 GM/50 ML D5W 1 GM/50 ML BAG IV SCH (20:47)
[2022-08-10] MEDS ORDERED: ZITHROMAX PO SCH (21:00)
[2022-08-10] MEDS ORDERED: TAMIFLU CAPSULE PO SCH (22:00)
== END 2022-08-10 20:51 | disposition other institution (70) ==
LOC: ED 17:18 → INTOOBSV 21:47 → MEDSURG A 21:47
PROVIDERS: ADMIT Internal Medicine Geriatric Medicine; ATTEND Emergency Medicine
DX: F17.210 Nicotine dependence, cigarettes, uncomplicated; Z20.822 Contact with and (suspected) exposure to COVID-19; J10.1 Influenza due to other identified influenza virus with other respiratory manifestations; E86.0 Dehydration; A41.9 Sepsis, unspecified organism; R53.1 Weakness; R07.9 Chest pain, unspecified; Z59.01 Sheltered homelessness